=== PATIENT | female | born 1980 | race American Indian/Alaskan Native ===

== ENCOUNTER 2020-02-03 19:03 | Emergency (ER) | payer SELFPAY ==
[2020-02-03 19:31] VITALS: BP 122/71
[2020-02-03 20:03] LABS: Hematocrit 22.9 % (30.3-42.9); Hemoglobin 7.2 gm/dl (10.1-14.3); Mean Corpuscular HGB Conc 31 % (30-34); Platelet Count 361 K/mm3 (140-440); Red Cell Distribution Width 18.5 % (13.2-15.2)
[2020-02-03 20:07] LABS: Mean Corpuscular Volume 68 fl (79-97)
[2020-02-03 20:18] LABS: Alanine Aminotransferase 8 units/L (7-56); Blood Urea Nitrogen 14 mg/dL (7-17); Hemolysis Index 0
[2020-02-03 20:25] LABS: BUN/Creatinine Ratio 23
[2020-02-03 20:40] LABS: Band Neutrophils # (Manual) 0.1 K/mm3; Basophils % (Manual) 0 % (0.0-1.8); Eosinophils % (Manual) 0 % (0.0-4.3); Total Cells Counted 100
[2020-02-03 20:41] LABS: Hypochromasia 2+; Ovalocytes Few
[2020-02-03 20:42] LABS: Platelet Estimate Consistent w Auto; Tear Drop Cells Rare
[2020-02-03 20:46] LABS: Bacteria,Urine 1+ /HPF (Negative); Bilirubin,Urine NEG (Negative); Blood,Urine LG (Negative); Color,Urine Yellow (Yellow); Mucus,Urine FEW /HPF; Protein,Urine <15 mg/dL mg/dL (Negative); Urobilinogen,Urine < 2.0 mg/dL (<2.0)
== END 2020-02-03 22:30 | disposition left against medical advice (07) ==
LOC: ED 19:03
DX: Z53.21 Procedure and treatment not carried out due to patient leaving prior to being seen by health care provider (principal)
CPT/HCPCS: 36415; 80053; 81001; 84702; 85007; 85025; 86900; 86901